=== PATIENT | female | born 1980 | race Two or more races ===

== ENCOUNTER 2016-06-25 19:38 | Emergency (ER) | payer OTHER ==
[~2016-06-25] VITALS: Ht 165.1 cm; Wt 113.4 kg
[2016-06-25] MEDS ORDERED: EXCEDRIN MIGRA1 EAC1 PO (20:11)
[2016-06-25 20:20] VITALS: BP 113/76
[2016-06-25] MEDS ORDERED: Norco 5mg/325mg tab ORAL ONE (21:15)
--- NOTE | 2016-06-25 21:17 | Emergency Room Report ---
History of Present Illness General Chief Complaint: Pain Source: Patient (Anabella Solis) Present Illness HPI 35-year-old female presents to emergency Department complaining of exacerbation of her previously injured right knee. Patient reports instability, swelling, new onset bruising. Patient denies trauma or fall. Patient reports that at times her knee will give out. Patient reports that in severity pain localized. She satiate injury and 2013 which required 2 surgeries to try to repair meniscus and ligamental damage. 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 denies erythema or increased temperature to palpation. Denies numbness tingling or loss of sensation or gross motor movements of the extremities, incontinence of bowel or bladder. Denies CP, Palpitations, LOC, AMS, dizziness, Changes in Vision, Sensation, paresthesias, or a sudden severe headache. (Anabella Solis) Allergies: Coded Allergies: No Known Allergies (Unverified , 06/25/16) Patient History Last Menstrual Period: 2 weeks ago (Anabella Solis) Nursing Documentation-[facility] Hx Neurological Problems: Yes - MIGRAINE (Anabella Solis) Review of Systems All Other Systems: negative except mentioned in HPI (Anabella Solis) Physical Exam Vital Signs Date Time Temp Pulse Resp B/P Pulse Ox O2 Delivery O2 Flow Rate FiO2 06/25/16 20:07 98.4 89 16 113/76 96 Room Air Sp02 EP Interpretation: reviewed, normal General Appearance: no apparent distress, alert, GCS 15, non-toxic Head: normocephalic, atraumatic Eyes: bilateral eye PERRL, bilateral eye normal inspection ENT: hearing grossly normal, normal pharynx, no angioedema, normal voice Neck: full range of motion, supple/symm/no masses Respiratory: lungs clear, normal breath sounds, speaking full sentences Cardiovascular #1: regular rate, rhythm, no edema Musculoskeletal: back normal, normal range of motion, no calf tenderness, other - TTP, swelling and mild bruising noted to the anterior and lateral right knee knee, no significant ligamental laxity noted on exam , pt. has modrate pain. , tender - TTP right anterior and lateral knee Neurologic: alert, oriented x3, responsive, motor strength/tone normal, sensory intact, speech normal, other Psychiatric: judgement/insight normal, memory normal, mood/affect normal, no suicidal/homicidal ideation Skin: normal color, no rash, warm/dry, well hydrated, other - no erythema or increased temperature to palpation, not suspicious for infection or gout. (Anabella Solis) Medical Decision Making PA Attestation Dr. Deleon is my supervising Physician whom patient management has been discussed with. (Anabella Solis) Diagnostic Impression: Primary Impression: Knee instability Qualified Codes: M25.361 - Other instability, right knee Additional Impressions: Knee joint pain Qualified Codes: M25.561 - Pain in right knee Right knee sprain Qualified Codes: S83.91XA - Sprain of unspecified site of right knee, initial encounter ER Course 35-year-old female presents to emergency Department complaining of exacerbation of her previously injured right knee. Patient reports instability, swelling, new onset bruising. Patient denies trauma or fall. Patient reports that at times her knee will give out. Patient reports that in severity pain localized. She satiate injury and 2012 which required 2 surgeries to try to repair meniscus and ligamental damage. 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 Ddx considered but are not limited to Fracture, dislocation, contusion, Sprain/ Strain/Spasm, Epidural abscess, Neoplastic mets. Vital signs: are WNL, pt. is afebrile H&PE are most consistent with knee instability, will r/o effusion ORDERS: - X-ray Right knee 3 views - negative for fx, Dislocation, or significant soft tissue injury, per preliminary read in ED by Dr. Alva ED INTERVENTIONS: - Long [place] PO - Right knee immobilizer Splint applied by technical specialist cytogenetics. Pt. remains neurovascularly intact. DISCHARGE: At this time pt. is stable for d/c to home. Will provide printed patient care instructions, and any necessary prescriptions. Care plan and follow up instructions have been discussed with the patient prior to discharge. (Anabella Solis) ER Course Scribe documentation reviewed by me and is accurate. (Adán Deleon M.D.) Last Vital Signs Date Time Temp Pulse Resp B/P Pulse Ox O2 Delivery O2 Flow Rate FiO2 06/25/16 20:20 98.4 89 16 113/76 96 Room Air (SolisAnabella velarde) Disposition: HOME, SELF-CARE Condition: Stable Scripts Hydrocodone Bit/Acetaminophen 5-325* (NORCO 5-325*) 1 Each Tablet 1 TAB ORAL Q6H Y for For Pain, #9 TAB 0 Refills Prov: Anabella Solis 06/25/16 Naproxen* (NAPROXEN*) 500 Mg Tablet.dr 500 MG ORAL TWICE A DAY for 30 Days, #60 TAB Prov: Anabella Solis 06/25/16 Departure Forms: Return to Work Return to Work Date: Jun 27, 2016 Work Restrictions: No Heavy Lifting, No Prolonged Standing Other Restrictions: light duty until cleared by [facility] Return to Full Activity: Jul 11, 2016 Patient Instructions: Knee Immobilizer, [id number] Additional Instructions: Take medications as directed. Follow up with PCP in 3-5 days Return sooner to ED if new symptoms occur, or current symptoms become worse. Do not drink alcohol, drive, or operate heavy machinery while taking [place] as this may cause drowsiness. - Please note that this Emergency Department Report was dictated using [employer] examiner technology software, occasionally this can lead to erroneous entry secondary to interpretation by the dictation equipment. Anabella Solis Jun 25, 2016 21:17 Adán Deleon M.D. Jun 27, 2016 22:01
[2016-06-25] MEDS ORDERED: NORCO 5-325 TA1 EACH ORAL (21:19)
[2016-06-25] MEDS ORDERED: NAPROXEN500 M1 ORAL (21:19)
[2016-06-25 22:10] VITALS: BP 118/77
[2016-06-25 22:14] VITALS: BP 118/77
--- NOTE | 2016-06-26 11:57 | Diagnostic Imaging Report ---
Indication: PAIN Technique: 3 views of the right knee Comparison: None Findings:No acute fractures. No dislocations. No definite suprapatellar effusion Impression:No acute process
== END 2016-06-25 22:15 | disposition home or self-care (01) ==
LOC: EMR 20:34
DX: M25.361 Other instability, right knee (principal); S83.91XA Sprain of unspecified site of right knee, initial encounter; X50.3XXA Overexertion from repetitive movements, initial encounter; Y92.219 Unspecified school as the place of occurrence of the external cause; Y99.0 Civilian activity done for income or pay
CPT/HCPCS: 99284